=== PATIENT | female | born 1995 | race Caucasian/White ===

== ENCOUNTER 2020-10-04 20:02 | Outpatient (CLI) | payer BC ==
--- NOTE | 2020-10-05 09:34 | Ultrasound Report ---
PROCEDURE: Pelvic w/Transvaginal INDICATIONS: PCOS, PELVIC AND ABD PAIN TECHNIQUE: Real-time scanning was performed of the pelvic organs, with image documentation. Additional endovagi nal scanning was necessary due to incomplete visualization of the adnexal and endometrial structures by transabdominal scanning. COMPARISON: None. FINDINGS: No pathologic free abdominal or pelvic fluid. Uterus: Uterus is normal in size at 2.6 x 3.6 x 7.3 cm. The endometrium measures 3.4 mm in combined thickness. Ovaries: The right ovary measures 1.9 x 1.1 x 1.4 cm and the left measures 2.3 x 1.3 x 1.6 cm. IMPRESSION: The ovarian appearance is not suggestive of polycystic ovarian syndrome. The ovaries are normal in si ze. The uterus appears normal as does the endometrial lining. Source of pain is not seen. Reviewed by: Ulysses Woodson MD on 10/05/2020 9:33 AM PST Approved by: Ulysses Woodson MD on 10/05/2020 9:33 AM PST Station ID: [id number]
== END 2020-10-04 20:03 | disposition home or self-care (01) ==
LOC: DI 20:02
PROVIDERS: ATTEND Physician Assistant Medical
DX: R10.2 Pelvic and perineal pain (principal); E28.2 Polycystic ovarian syndrome

== ENCOUNTER 2020-12-01 15:50 | Outpatient (CLI) | payer BC ==
[2020-12-01 16:11] LABS: MUDS CUTOFF CONCENTRATIONS CUTOFF CONC BELOW:
[2020-12-01 16:16] LABS: BASOPHILS # (AUTO) 0.1 10^3/uL (0.0-0.1); BASOPHILS % (AUTO) 0.5 %; EOSINOPHILS # (AUTO) 0.2 10^3/uL (0.0-0.7); EOSINOPHILS % (AUTO) 1.9 %; HCT - HEMATOCRIT 38.4 % (37.0-47.0); HGB - HEMOGLOBIN 12.2 g/dL (12.0-16.0); LYMPHOCYTES # (AUTO) 3.3 10^3/uL (1.5-3.5); LYMPHOCYTES % (AUTO) 30.7 %; MEAN CORPUSCULAR HEMOGLOBIN 27.6 pg (27.0-31.0); MEAN CORPUSCULAR HGB CONC 31.8 g/dL (32.0-36.0); MEAN CORPUSCULAR VOLUME 86.9 fL (81.0-99.0); MEAN PLATELET VOLUME 9.3 fL (7.9-10.8); MONOCYTES # (AUTO) 0.5 10^3/uL (0.0-1.0); MONOCYTES % (AUTO) 4.6 %; NEUTROPHILS # (AUTO) 6.6 10^3/uL (1.5-6.6); PLT - PLATELET COUNT 303 10^3/uL (130-450); RED BLOOD COUNT 4.42 10^6/uL (4.20-5.40); RED CELL DISTRIBUTION WIDTH 13.4 % (12.0-15.0); WHITE BLOOD COUNT 10.6 x10^3/uL (4.8-10.8)
[2020-12-01 16:28] LABS: AMPHETAMINE SCREEN,URINE NEGATIVE (NEGATIVE); BARBITURATE SCREEN,UR NEGATIVE (NEGATIVE); BENZODIAZEPINES SCREEN, URINE NEGATIVE (NEGATIVE); COCAINE SCREEN URINE NEGATIVE (NEGATIVE); METHADONE SCREEN, URINE NEGATIVE (NEGATIVE); METHAMPHETAMINES SCREEN, URINE NEGATIVE (NEGATIVE); OPIATE SCREEN, URINE NEGATIVE (NEGATIVE); OXYCODONE SCREEN, URINE NEGATIVE (NEGATIVE); PROPOXYPHENE SCREEN, URINE NEGATIVE (NEGATIVE); THC CANNABINOID SCREEN, URINE NEGATIVE (NEGATIVE); TRICYCLIC ANTIDEPRESSANT,URINE NEGATIVE (NEGATIVE)
[2020-12-01 16:29] LABS: ALBUMIN 3.8 g/dL (3.2-5.5); ALBUMIN/GLOBULIN RATIO 1.2 (1.0-2.2); BILIRUBIN,TOTAL 0.3 mg/dL (0.2-1.0); CALCIUM 9.2 mg/dL (8.5-10.3); CREATININE 0.9 mg/dL (0.4-1.0); POTASSIUM 3.4 mmol/L (3.5-5.0)
[2020-12-01 16:46] LABS: THYROID STIMULATING HORMONE 0.99 uIU/mL (0.34-5.60)
== END 2020-12-01 15:51 | disposition home or self-care (01) ==
LOC: LAB 15:50
PROVIDERS: ATTEND Psychiatry & Neurology Psychiatry
DX: F90.9 Attention-deficit hyperactivity disorder, unspecified type (principal); Z79.899 Other long term (current) drug therapy; Z86.2 Personal history of diseases of the blood and blood-forming organs and certain disorders involving the immune mechanism; F41.9 Anxiety disorder, unspecified; F32.9 Major depressive disorder, single episode, unspecified
CPT/HCPCS: 36415; 80053; 80306; 84443; 85025

== ENCOUNTER 2021-02-15 08:00 | Outpatient (CLI) | payer BC ==
[2021-02-15 21:52] LABS: BACTERIAL VAGINOSIS DNA NEGATIVE (NEGATIVE); CANDIDA GLABRATA DNA NEGATIVE (NEGATIVE); CANDIDA GROUP DNA NEGATIVE (NEGATIVE); CANDIDA KRUSEI DNA NEGATIVE (NEGATIVE); TRICHOMONAS VAGINALIS DNA NEGATIVE (NEGATIVE)
[2021-02-15 22:42] LABS: CHLAMYDIA TRACHOMATIS DNA NEGATIVE (NEGATIVE); NEISSERIA GONORRHOEAE DNA NEGATIVE (NEGATIVE); TRICHOMONAS VAGINALIS DNA NEGATIVE (NEGATIVE)
== END 2021-02-15 23:59 | disposition home or self-care (01) ==
LOC: LAB.N 08:00
PROVIDERS: ATTEND Family Medicine
DX: N89.8 Other specified noninflammatory disorders of vagina (principal)
CPT/HCPCS: 87086; 87181; 87491; 87591; 87661; 87801

== ENCOUNTER 2022-10-22 10:48 | Outpatient (CLI) | payer BC ==
[2022-10-22 11:27] LABS: THYROID STIMULATING HORMONE 1.02 uIU/mL (0.34-5.60)
[2022-10-22 11:29] LABS: FREE T4 (FREE THYROXINE) 1.67 ng/dL (0.58-1.64)
== END 2022-10-22 10:49 | disposition home or self-care (01) ==
LOC: LAB 10:48
PROVIDERS: ATTEND Nurse Practitioner Obstetrics & Gynecology
DX: N92.6 Irregular menstruation, unspecified (principal)
CPT/HCPCS: 36415; 84439; 84443

== ENCOUNTER 2022-11-26 08:40 | Outpatient (CLI) | payer BC ==
--- NOTE | 2022-11-26 12:17 | Ultrasound Report ---
PROCEDURE: Pelvic w/Transvaginal INDICATIONS: PELVIC PAIN TECHNIQUE: Real-time scanning was performed of the pelvic organs, with image documentation. Additional endovagi nal scanning was necessary due to incomplete visualization of the adnexal and endometrial structures by transabdominal scanning. COMPARISON: Pelvic ultrasound 10/04/2020 FINDINGS: Uterus: Uterus is anteverted and unremarkable in size at 8.6 x 2.5 x 3.8 cm. The myometrium is homo geneous. The endometrium measures 2 mm in combined thickness. Small amount of fluid present in the uterine cavity. At the lower aspect of the lower uterine cavity/endometrium, there is an approximatel y 2 mm echogenic ovoid structure present. Ovaries: The right ovary measures 2.3 x 1.2 x 0.9 cm, with a calculated ovarian volume of 1 cc. The left ovary measures 2.2 x 1.1 x 1.2 cm, with a calculated ovarian volume of 1.4 cc. The ovaries hav e a unremarkable sonographic appearance. Less than 12 follicles can be seen in each ovary. No adnex al masses are seen. Other: No pathologic free abdominal or pelvic fluid. IMPRESSION: 1. At the lower aspect of the uterine cavity/endometrium, there is an approximately 2 mm echogenic ov oid structure present which is indeterminate. This could potentially represent blood products or a ti ny endometrial polyp. Follow-up imaging could be obtained as clinically indicated. 2. No adnexal mass visualized. Reviewed by: Frankie Cerda MD on 11/26/2022 12:16 PM PDT Approved by: Frankie Cedra MD on 11/26/2022 12:16 PM PDT Station ID: [id number]
== END 2022-11-26 08:41 | disposition home or self-care (01) ==
LOC: DI 08:40
PROVIDERS: ATTEND Nurse Practitioner Obstetrics & Gynecology
DX: N85.9 Noninflammatory disorder of uterus, unspecified (principal); R10.2 Pelvic and perineal pain